=== PATIENT | male | born 1990 | race Caucasian/White ===

== ENCOUNTER 2016-08-26 16:49 | Emergency (ER) | payer OTHER ==
[2016-08-26 17:07] VITALS: BP 118/64
--- NOTE | 2016-08-26 17:19 | UC ---
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 He trew the other piece of skin in the garbage, cleansed the wound, applied pressure. His tetanus shot was given 11/2015. He states he bled a lot, but now it has stopped. Denies numbness, pain of his finger. He states he has been recently Dx with Anxiety and is taking Buspirone 15mg PO TID. No other complains. - History Of Current Complaint Chief Complaint: UCLaceration Stated Complaint: FINGER LACERATION Time Seen by Provider: 08/26/16 17:11 Hx Obtained From: Patient Laceration Location: Finger - Left middle finger with avulsion laceration Mechanism Of Injury: Sharp Trauma Onset/Duration: Sudden Onset, Lasting Hours, Still Present Severity: Mild Pain Intensity: 0 Pain Scale Used: 0-10 Numeric Aggravating Factors: Movement - make it bleed Related History: Dominant Hand Right - Allergies/Home Medications Allergies/Adverse Reactions: Allergies Allergy/AdvReac Type Severity Reaction Status Date / Time Cefaclor [From [facility]] Allergy Severe Swelling Verified 08/26/16 17:07 Home Medications: Home Medications busPIRone TAB* [Buspar TAB *] 15 mg PO TID 08/26/16 [History Confirmed 08/26/16] PMH/Surg Hx/FS Hx/Imm Hx Previously Healthy: Yes Psychological History: Anxiety - Surgical History Surgical History: Yes Surgery Procedure, Year, and Place: Adenoids - Family History Known Family History: Positive: Cardiac Disease, Hypertension - Social History Alcohol Use: Occasionally Alcohol Amount: 5 beers last night Substance Use Type: Cocaine Substance Use Comment - Amount & Last Used: last night Smoking Status (MU): Former Smoker Type: Cigarettes Amount Used/How Often: 5-10 cigs per day Length of Time of Smoking/Using Tobacco: 6 months consistently Have You Smoked in the Last Year: No - Immunization History Most Recent Tetanus Shot: 2015 Review of Systems Constitutional: Negative Skin: Other - avulsion of tip of left middle finger Eyes: Negative ENT: Negative Respiratory: Negative Cardiovascular: Negative Gastrointestinal: Negative Genitourinary: Negative Motor: Negative Neurovascular: Negative Musculoskeletal: Negative Neurological: Negative Psychological: Negative All Other Systems Reviewed And Are Negative: Yes Physical Exam Triage Information Reviewed: Yes Appearance: Well-Appearing, No Pain Distress, Well-Nourished, Thin Vital Signs: Initial Vital Signs Temp 99.2 F 08/26/16 17:04 Pulse 84 08/26/16 17:04 Resp 18 08/26/16 17:04 BP 118/64 08/26/16 17:04 Pulse Ox 98 08/26/16 17:04 Vital Signs Reviewed: Yes Eye Exam: Normal Eyes: Positive: Conjunctiva Clear - PERRLA, EOMI, fundi grossly normal ENT Exam: Normal ENT: Positive: Normal ENT inspection, Hearing grossly normal, Pharynx normal, TMs normal. Negative: Nasal congestion, Nasal drainage Dental Exam: Normal Neck exam: Normal Neck: Positive: Supple, Nontender, No Lymphadenopathy Respiratory Exam: Normal Respiratory: Positive: Chest non-tender, Lungs clear, Normal breath sounds Cardiovascular Exam: Normal Cardiovascular: Positive: RRR, No Murmur, Pulses Normal Abdominal Exam: Normal Abdomen Description: Positive: Nontender, No Organomegaly, Soft. Negative: CVA Tenderness (R), CVA Tenderness (L) Bowel Sounds: Positive: Present Musculoskeletal Exam: Normal Musculoskeletal: Positive: Strength Intact, ROM Intact, No Edema Neurological Exam: Normal Psychological Exam: Normal Skin: Positive: Other - Left #3 digit with avulsion of medial tip of finger, mildly bleeding. Pt threw the other piece of skin in the garbage. FROM, nomal pulses, positive capillary refill, and sensation intact. 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 Hx obtained. PE abnormal findings:Left #3 digit with avulsion of medial tip of finger, mildly bleeding. Pt threw the other piece of skin in the garbage. FROM, nomal pulses, positive capillary refill, and sensation intact. Pt tetanus vaccine updated in 11/2016. Wound cleaned and irrigated well. Bleeding stopped with pressure. [id number] ADS adjusted to size of avulsion and applied with pressure. Wound dressed. Pt advised if any signs of infection develop to return to the urgent care or f/u with his PCP for further treatment. Pt understood and agreed. Left the clinic ambulating - Differential Dx - Laceration/Wound Differental Diagnoses: Avulsion, Foreign Body, Laceration, Puncture Wound, Tendon Laceration Provider Diagnoses: Avulsion laceration of left #3 digit. Discharge - Discharge Plan Condition: Stable Disposition: HOME Patient Education Materials: Finger Laceration (ED) Referrals: Svetlana Ordaz MD [Medical Doctor] - If Needed Additional Instructions: Please keep wound dry at all times. If signs of infection develop, fever, pain , purulent discharge please return to the urgent care or f/u with your PCP for further treatment.
[2016-08-26] MEDS ORDERED: Gelfoam 12-7 ADSORBABL SPONGE* 1 EA SPONGE TOPICAL ONE (17:30)
== END 2016-08-26 18:10 | disposition home or self-care (01) ==
LOC: UCEAST 16:49
DX: S61.213A Laceration without foreign body of left middle finger without damage to nail, initial encounter (principal); W29.0XXA Contact with powered kitchen appliance, initial encounter; Y93.9 Activity, unspecified; Y92.9 Unspecified place or not applicable; Y99.9 Unspecified external cause status; Z72.0 Tobacco use; F41.9 Anxiety disorder, unspecified; F10.10 Alcohol abuse, uncomplicated; F14.10 Cocaine abuse, uncomplicated
CPT/HCPCS: 12001; 99211; 99212; A9270-GY; G0463